=== PATIENT | female | born 1995 | race Caucasian/White ===

== ENCOUNTER 2024-12-16 08:08 | Day surgery (SDC) | payer BC ==
[2024-12-16 09:07] LABS: HCG URINE TEST NEGATIVE (NEGATIVE)
[2024-12-16] MEDS ORDERED: Lactated Ringers 1,000 ML IV ONE (09:08)
[2024-12-16 09:20] VITALS: RESP 18; O2SAT 99
[2024-12-16] MEDS ORDERED: CEFAZOLIN 2 GM/100 ML NaCl 2 GM/100 ML IVPB IV ONE (09:23)
[2024-12-16] MEDS: CEFAZOLIN 2 GM/100 ML NaCl 2 GM/100 ML IVPB IV SCH (09:34)
[2024-12-16] MEDS: Lactated Ringers 1,000 ML IV SCH (09:34)
[2024-12-16] MEDS: Versed 2 MG/2 ML Injection IV PRN (09:49)
[2024-12-16] MEDS ORDERED: Sensorcaine 0.25% 10 ML ONE (10:35)
[2024-12-16] MEDS ORDERED: Sodium Chloride 0.9% 1000 ML 1,000 ML ONE (10:44)
[2024-12-16] MEDS ORDERED: Zofran 4 MG/2 ML VIAL ONE (11:16)
[2024-12-16] MEDS ORDERED: BRIDION 200MG/2ML IV ONE (11:16)
[2024-12-16] MEDS ORDERED: TORAdol 30 mg Injection ONE (11:16)
[2024-12-16] MEDS ORDERED: ROCURONIUM BROMIDE IV ONE (11:16)
[2024-12-16] MEDS ORDERED: dexAMETHasone sodium phosphate ONE (11:16)
[2024-12-16] MEDS ORDERED: propofoL IV ONE (11:16)
[2024-12-16] MEDS ORDERED: SUBLIMAZE 100 MCG/2 ML ONE ×2 (11:19→11:40)
[2024-12-16 12:14] VITALS: TEMP 98.5
[2024-12-16 12:47] VITALS: BP 107/82; PULSE 85
--- NOTE | 2024-12-18 08:57 | OP ---
SURGERY DATE/TIME: 12/16/2024 2101 - 0801 PREOPERATIVE DIAGNOSIS: Contraceptive care, multiparity desiring tubal sterilization. POSTOPERATIVE DIAGNOSIS: Contraceptive care, multiparity desiring tubal sterilization. PROCEDURE: Laparoscopic bilateral salpingectomy. SURGEON: Franc Richardson DO ELECTRONIC TEST TECHNICIAN: Abril Rogers. ANESTHESIA: General. ESTIMATED BLOOD LOSS: Minimal. COMPLICATIONS: None. INDICATIONS: The risks, benefits, indications, and alternatives of the procedure were reviewed with the patient prior to the procedure. Patient understood the risk of infection, bleeding, bowel injury, bladder injury, ureteral injury, pelvic infection, thromboembolic disorder, possible future and ectopic that may occur, whereas all other forms of control had been discussed with the patient prior to the procedure. The patient desires to have this form of control as a means for a control measurement and still understands the possibility that she may still get and the possibility that she may never get . DESCRIPTION OF PROCEDURE AND FINDINGS: From this point, patient was taken to the operating room, given general sedation, placed in a supine position where she was prepped and draped in the usual sterile fashion. A 5 mm skin incision was made in the umbilical fold where a 5 mm trocar and sleeve were advanced under direct visualization where pneumoperitoneum was obtained with 4 L of CO2 gas. A second incision was made in the left mid quadrant region where a 5 mm trocar and sleeve were advanced under direct visualization. A third incision was made 2 cm above the symphysis pubis where an 8 mm incision was made and an 8 mm trocar and sleeve were advanced under direct visualization. From this point, a survey of the patient's pelvis and abdomen revealed entirely normal anatomy. From this point, the right fallopian tube was elevated with a grasper and the LigaSure was placed on the right mesosalpinx where it was clamped, coagulated, and cut towards the cornual region where at that point it was excised in its entirety. The fallopian tube was removed through the 8 mm trocar site without complication. The same procedure was performed on the left side where the fallopian tube was elevated and the LigaSure was placed along the mesosalpinx and clamped, coagulated, and cut toward the cornual region, where then it was excised in its entirety and hemostasis was obtained. From this point, there was no bleeding that was noted in the pelvic region. All instruments were then removed from the patient's abdominal region, and the incisions were closed with 4-0 Monocryl suture with the placement of Dermabond on top of the incision. The patient was then taken out of anesthesia and was then taken to the recovery room in stable condition. All instruments and laps were accounted for x2.
== END 2024-12-16 12:50 | disposition home or self-care (01) ==
LOC: SDC 08:08
PROVIDERS: ATTEND Obstetrics & Gynecology
DX: Z30.2 Encounter for sterilization (principal)
CPT/HCPCS: 58661; 81025; J0690; J1100; J1885; J2250; J2405; J2704; J3010